=== PATIENT | male | born 1970 | race Caucasian/White ===

== ENCOUNTER 2020-06-30 07:23 | Emergency (ER) | payer BC ==
[~2020-06-30] VITALS: Ht 172.7 cm; Wt 91.8 kg
[2020-06-30] MEDS ORDERED: NITROGLYCERIN SINGLE TAB 0.4 MG SL PRN (08:00)
[2020-06-30] MEDS ORDERED: SODIUM CHLORIDE FLUSH 10ML SYR IVF ONE (08:00)
[2020-06-30] MEDS ORDERED: ASPIRIN 81 MG TABLET CHEW PO ONE (08:00)
[2020-06-30] MEDS ORDERED: NITROGLYCERIN OINT 2%, 1GM TP ONE ×2 (08:00→08:04)
[2020-06-30] MEDS ORDERED: ASPIRIN 81 MG TABLET CHEW ONE (08:04)
--- NOTE | 2020-06-30 08:20 | NUR ---
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 Pt is unclear about the onset of symptoms, "last year... well a couple years ago I had a cardiac work up." Pt also describes himself as weak, feels like he's unable to do the active activities he enjoys and states he's lost muscle mass. Pt able to talk in complete sentences. Pt also expressed concerns about his drinking habits, states he has 8 beers at a time but not every day. Pt offered education about drinking cessation and resources which he denied. Pt placed on cardiac, BP and O2 monitors. Call light in reach and phone in hand. Bedrails up x2. MD Connolly at bedside for eval.
[2020-06-30 08:25] LABS: BASOPHILS % (AUTO) 1 % (0-1); EOSINOPHILS % (AUTO) 4 % (1-7); LYMPHOCYTES % (AUTO) 20 % (22-44); MEAN CORPUSCULAR HEMOGLOBIN 31.9 pg (27.5-34.5); MEAN CORPUSCULAR HGB CONC 33.5 g/dL (33.2-36.2); MEAN PLATELET VOLUME 10.3 fL (7.4-10.4); MONOCYTES % (AUTO) 7 % (2-9); NEUTROPHILS % (AUTO) 68 % (42-75); PLATELET COUNT 178 x10^3/uL (130-400); RED BLOOD COUNT 4.66 x10^6/uL (4.38-5.82); RED CELL DISTRIBUTION WIDTH 13.1 % (9.4-14.8)
[2020-06-30 08:28] LABS: MD NO
[2020-06-30 08:35] LABS: ANION GAP 5 mmol/L (5-15); CALCIUM 9.5 mg/dL (8.5-10.1); CHLORIDE 105 mmol/L (98-107); CREATININE 0.93 mg/dL (0.7-1.3)
[2020-06-30 08:39] LABS: TROPONIN I < 0.015 ng/mL (0.000-0.045)
[2020-06-30] MEDS ORDERED: NITROGLYCERIN SINGLE TAB 0.4 MG SL ONE (08:54)
--- NOTE | 2020-06-30 09:59 | NUR ---
MD Connolly back to bedside to update pt on POC.
[2020-06-30 10:32] VITALS: BP 125/79
== END 2020-06-30 10:34 | disposition home or self-care (01) ==
LOC: ED 09:15
DX: R06.00 Dyspnea, unspecified (principal); R07.2 Precordial pain; R00.2 Palpitations; F17.200 Nicotine dependence, unspecified, uncomplicated
CPT/HCPCS: 36415; 71045; 80048; 82040; 83880; 84484; 85025; 85379; 93005; 99285